=== PATIENT | male | born 1970 | race Caucasian/White ===

== ENCOUNTER 2019-10-16 00:21 | Day surgery (SDC) | payer OTHER, SELFPAY ==
[2019-10-08 08:53] VITALS: BMI 19.8
--- NOTE | 2019-10-15 08:38 | PM.IMHP ---
H&P: HPI History of Present Illness Chief complaint: Rt medial & lateral meniscal tear,ACL tear Narrative: Pt. presents for MRI results of the Rt knee. Involved knee: right Onset: gradual Location of pain: other (entire knee region ) Pain scale (0-10): 7 Character: stabbing, dull ache and other (sharp) Timing of pain: constant Exacerbated by: direct pressure, weight bearing, stairs and prolonged activity Relieved by: elevation, ice, rest and NSAIDs History of occupational/recreational activity with repetitive motion: No History of prior knee injury: No Chief Complaint: see Reason for Visit Duration: years Severity: moderate Review of Systems Review of Systems: All systems reviewed & are unremarkable except as noted in HPI and below Constitutional: Constitutional: Denies headache(s) and Denies weakness Eyes: Eyes: Denies blurry vision, Denies change in vision and Denies loss of vision ENT: Denies dizziness, Denies dry mouth, Denies headache(s) and Denies nasal congestion Cardiovascular: Cardiovascular: Denies chest pain, Denies syncope, Denies leg edema and Denies dyspnea on exertion Respiratory: Respiratory: Denies cough and Denies dyspnea on exertion Gastrointestinal: Gastrointestinal: Denies abdominal pain, Denies constipation and Denies diarrhea Genitourinary: Genitourinary: Denies urinary frequency Musculoskeletal: Musculoskeletal: Reports as per HPI and Denies numbness Integumentary/Breasts: Skin/Breast: Reports system reviewed and no additional complaints, except as docu Neurologic: Denies dizziness, Denies syncope, Denies headache(s), Denies loss of vision, Denies numbness and Denies weakness Psychiatric: Psychiatric: Reports no additional psychiatric complaints Endocrine: Endocrine: Reports no additional endocrine complaints Hematologic/Lymphatic: Hematologic/Lymphatic: Reports no additional hematologic/lymphatic complaints [facility] Past Medical History Medical History ACL tear Bilateral knee pain Lateral meniscus tear Medial meniscus tear Social History Social History Smoking status: Never smoker Alcohol intake: never Meds Home Medications and Allergies Home Medications Medication Instructions Recorded Confirmed Type No Home Medications 08/09/19 10/08/19 History Allergies Allergy/AdvReac Type Severity Reaction Status Date / Time terbinafine Allergy Mild Hives Verified 10/08/19 08:52 Exam Narrative: Exam Narrative: Const Constitutional General: cooperative Nutritional Appearance: average body habitus Orientation/consciousness: oriented x3 Constitutional Limitations: no limitations HENMT Head: normal to inspection Ears: hearing grossly normal bilaterally General nose exam: external nose normal Face and sinus: normal facial exam Mouth: moist mucous membranes Teeth and gingiva: dentition normal Eyes General: appearance normal, both eyes and all related structures Pupils: Yes PERRL EOM: EOM intact bilaterally Neck Neck: Yes normal visual inspection Chest Chest palpation & inspection: normal inspection of the chest Resp Effort & Inspection: normal respiratory effort and able to speak in complete sentences Cardio Jugular venous distension: no JVD Neuro Cranial nerves: Yes PERRL Extrem General: Yes normal gait (antalgic ) and No calf tenderness Right lower extremity: normal to inspection, normal capillary refill and knee Details: abnormal to inspection, tenderness Location: medial joint line and lateral joint line, swelling, abnormal ROM (AROM/PROM limited by pain. 0-120 ), knee ligament exam normal (positive pivot shift test ) and Kate's Test (Positive medial Kate's. ) Details: negative medially and laterally Left lower extremity: normal to inspection, full ROM, normal capillary refill and knee Details: normal to inspection, normal ROM, knee ligament exam rusty
[2019-10-16] VITALS (9 sets, daily range): BP systolic 113–142; BP diastolic 63–80; PULSE 75–86; RESP 14–24; TEMP 36.3–36.9; O2SAT 94–99
--- NOTE | 2019-10-16 07:37 | WPDHPUPDATE1 ---
History and Physical Update Update Date/Time: 10/16/19 07:37 History and Physical has been reviewed, including an updated exam of the patient. There are NO changes in the patient's condition. Risks, benefits, and alternatives have been discussed and questions answered. Patient agrees to proceed with procedure.
[2019-10-16] MEDS: LACTATED RINGERS 1,000 ML 30 ML IV CONT ×2 (10:55→15:33)
[2019-10-16] MEDS: CELECOXIB 200 MG CAPSULE PO (11:14)
--- NOTE | 2019-10-16 11:15 | SUR.PREOP ---
1100 PT DENIES NEED FOR CRUTCH TRAINING, CRUTCHES ADJUSTED FOR PTS USE.
--- NOTE | 2019-10-16 11:48 | P.PNAN_ITS ---
Anes - Initial Pre Proc Eval Procedure: Operation Date: 10/16/19 12:30 Proposed Procedures p Right Knee Arthroscopy with Meniscectomy and Anterior Cruciate Ligament Reconstruction - Brent Burrows MD Date/Time: 10/16/19 11:48 Surgeon: Brent Burrows MD Pre Op Diagnosis: Rt medial & lateral meniscal tear,ACL tear Patient Data Age: 49 Gender: M Height: 1.73 m Weight: 106 kg Last Vital Signs Temp 36.3 C L 10/16/19 11:07 Pulse 79 10/16/19 11:07 Resp 18 10/16/19 11:07 BP 128/80 10/16/19 11:07 Pulse Ox 96 10/16/19 11:07 Allergies Allergy/AdvReac Type Severity Reaction Status Date / Time terbinafine Allergy Mild Hives Verified 10/16/19 11:01 Home Medications Medication Instructions Recorded Confirmed Type No Home Medications 08/09/19 10/16/19 History Patient hx anesthesia problems: none Family hx anesthesia problems: none [facility] Past Medical History Medical History ACL tear Bilateral knee pain Lateral meniscus tear Medial meniscus tear Social History Social History Smoking status: Never smoker Alcohol intake: never Anes - Eval Final PreProcedure Day of Procedure 10/16/19 11:48 Patient weight: obese Heart: regular rate and rhythm Lungs: clear to auscultation and normal air movement Airway: Mallampati scale class II Neurological: alert and oriented Last oral intake: >/= 8 hours ASA classification: II Emergent: no Anesthetic plan: proceed Anesthesia type and monitoring: general LMA and standard monitoring Informed Consent: The patient's anesthetic plan and its attendant risks and benefits were discussed with the patient/family/POA. Questions were solicited and answers provided to the satisfaction of the patient/family/POA.
[2019-10-16] MEDS: ceFAZolin 2 GM/D5W 50 ML 2 GM/50 ML BAG IVPB (12:32)
--- NOTE | 2019-10-16 15:15 | PM.OP ---
Procedure Note - Brief Procedure Note - Brief Date of procedure: 10/16/19 Pre-op diagnosis: Rt medial & lateral meniscal tear,ACL tear Post-op diagnosis: same Procedure performed: R ACL RECONSTRUCTION WITH PARTIAL MEDIAL AND LATERAL MENISCECTOMY Anesthesia: GETA Surgeon: Brent Burrows MD Estimated blood loss (mL): 20 Drains: No Complications: No immediate complications Condition: stable Disposition: PACU
[2019-10-16] MEDS: ONDANSETRON INJ 4 MG/2 ML VIAL IV PUSH (16:09)
--- NOTE | 2019-10-16 16:09 | SUR.PHASEI ---
1609; PT AWAKE, C/O NAUSEA. BECAME DIAPHORETIC. OLIVIA HUGGER REMOVED. COLD CLOTH TO FOREHEAD. ZOFRAN GIVEN IV.
--- NOTE | 2019-10-16 16:27 | SUR.PHASEI ---
1625; SAO2 DROPS TO 88% ON ROOM AIR. RESP EVEN UNLABORED. O2 2L NC APPLIED. PT RESTING QUIETLY.
--- NOTE | 2019-10-16 16:35 | SUR.PHASEI ---
1634; OXYGEN REMOVED. PT AWAKE AND ALERT.
--- NOTE | 2019-10-16 16:41 | SUR.PHASEI ---
1641; SAO2 94% ON ROOM AIR. READY TO SEE FAMILY
--- NOTE | 2019-10-16 17:49 | OP_ITS ---
DATE OF PROCEDURE: 10/16/2019 PREOPERATIVE DIAGNOSIS: Right knee ACL rupture, medial meniscus tear and lateral meniscus tear. POSTOPERATIVE DIAGNOSIS: Right knee ACL rupture, medial meniscus tear and lateral meniscus tear. PROCEDURE: Right ACL reconstruction, partial medial meniscectomy and partial lateral meniscectomy. ANESTHESIA: General. COMPLICATIONS: None. INDICATIONS: This is a 49-year-old male, who tore his right anterior cruciate ligament as well as the medial and lateral meniscus. He had instability and pain. He was indicated for right ACL reconstruction and partial medial and lateral meniscectomies. DESCRIPTION OF PROCEDURE: The patient was taken to the operating room in stable condition and placed in supine position. General anesthesia was induced and once he was chemically paralyzed, a pivot shift test was performed on the knee and he had a positive pivot shift on the right knee and this was compared to the left side, which had a negative pivot shift test. So, then the right lower extremity was prepped and draped sterilely from the toes to the thigh. A superomedial portal was used for an outflow cannula. An inferolateral portal was used for the camera. The camera was introduced. There was minimal chondromalacia to the patellofemoral joint. There was a large effusion in the knee. There was a lot of synovitis as well. The medial compartment was entered. There was a large tear of the medial meniscus. There was a complex tear. There was some mild chondromalacia to the medial femoral condyle. A medial portal was established and a biter and shaver were introduced at separate times and the medial meniscus was resected along the part that was torn and it was smoothed out to a stable base. Next, just a minimal chondroplasty was performed over the medial femoral condyle, and then intercondylar notch was entered. The ACL was completely torn. There were remnants of the ACL, but there was no viable tissue. The PCL was actually appearing and it was found to be intact. Next, the lateral compartment was entered, and then there was the evidence of a large tear of the lateral meniscus, which involved the entire posterior horn and some of the anterior horn as well. A shaver and a biter were used to perform a partial lateral meniscectomy, and there was also some chondromalacia on the lateral femoral condyle that was debrided as well to a stable base. Next, the intercondylar notch was entered once again and a debridement of the remnants of the ACL were performed with both the shaver and a cautery until the PCL was identified. The PCL was intact. Next, a notchplasty was performed with a james until the [id number] position was identified. Once that was performed, then a small incision was made in the anterior medial aspect of the knee just medial to the tibial tubercle down through the subcutaneous tissues through the fascia and down to bone. An ACL position guide was placed through the medial portal and into the proximal tibia, and the guide was placed just adjacent to the PCL stump and a guide pin was placed for the tibial tunnel. This guide pin exited just anterolateral to the PCL and it was in good position. Once that was performed, a 9.5 mm drill bit was used to drill the tibial tunnel. Over the top #7 guide was placed to the tibial tunnel and into the [id number] position and a drill guide was used and passed through the femur and exiting out the anterior lateral thigh. A femoral tunnel then was drilled using a 9.5 mm drill bit measuring approximately 27 mm in depth. The drill hole was quite nice and [id number] position was maintained. Once that was performed, then the graft with an Endobutton of the tight wire type was then fed through the guidewire needle and it was pushed through the tib
== END 2019-10-16 17:39 | disposition home or self-care (01) ==
PROVIDERS: PCP Family Medicine; Visit Provider Orthopaedic Surgery
PROC: (CPT 29888; principal; 2019-10-16 12:30)
DX: S83.511A Sprain of anterior cruciate ligament of right knee, initial encounter (principal); S83.231A Complex tear of medial meniscus, current injury, right knee, initial encounter; S83.271A Complex tear of lateral meniscus, current injury, right knee, initial encounter; M65.861 Other synovitis and tenosynovitis, right lower leg; M94.261 Chondromalacia, right knee; X58.XXXA Exposure to other specified factors, initial encounter; E66.9 Obesity, unspecified; Z68.35 Body mass index [BMI] 35.0-35.9, adult
CPT/HCPCS: 29880; 29888; A9270; J0690; J1170; J2250; J2405; J3010; J7120; L1830

== ENCOUNTER → 2023-12-14 14:54 | Outpatient (CLI) | payer OTHER, SELFPAY ==
--- NOTE | ~2023-12-14 | XR_ITS ---
XR shoulder LT min 2V 12/14/2023 15:20 Indication: Left shoulder pain Procedure: 4 views left shoulder Comparison: No prior studies for comparison. Findings: There is mild polyarticular osteoarthritis of the shoulder. No fracture or traumatic malali gnment. There is no significant focal soft tissue abnormality. No foreign bodies. Impression: 1: Mild polyarticular osteoarthritis. Reviewed, dictated and finalized at location A. Impression: 1: Mild polyarticular osteoarthritis.
== END ==
PROVIDERS: PCP Family Medicine; Visit Provider Family Medicine
DX: M25.512 Pain in left shoulder (principal); M19.012 Primary osteoarthritis, left shoulder
CPT/HCPCS: 72050; 73030

== ENCOUNTER → 2023-12-14 16:20 | Outpatient (CLI) | payer OTHER, SELFPAY ==
--- NOTE | ~2023-12-14 | XR_ITS ---
XR cervical spine 4-5V 12/14/2023 16:34 Indication: Neck pain and cervicalgia Procedure: 5 views of the cervical spine Comparison: No prior studies for comparison. Findings: Straightening of cervical lordosis, likely due to muscle spasm. Vertebral body heights are maintained. No prevertebral soft tissue swelling. Lung apices are unremarkable. Odontoid process is n ormal. There are small marginal osteophytes ventrally at multiple levels. Impression: 1: Mild cervical spondylosis. Reviewed, dictated and finalized at location A. Impression: 1: Mild cervical spondylosis.
== END ==
PROVIDERS: PCP Family Medicine; Visit Provider Family Medicine
DX: M54.2 Cervicalgia (principal); M43.02 Spondylolysis, cervical region
CPT/HCPCS: 72050

== ENCOUNTER → 2024-03-27 11:07 | Outpatient (CLI) | payer OTHER, SELFPAY ==
--- NOTE | ~2024-03-27 | XR_ITS ---
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 COMPARISON: None available. FINDINGS: Normal mineralization. No fracture or dislocation. No lytic or blastic lesion. Mild planta r enthesopathy. Mild degenerative change at the first MTP joint. No erosion or periosteal change. Sof t tissues within normal limits. IMPRESSION: Mild first MTP joint osteoarthritis. Plantar enthesopathy. Reviewed, dictated and finalized at location K.
== END ==
LOC: EXPTRAD 11:08
PROVIDERS: PCP Family Medicine; Visit Provider Family Medicine
DX: M19.072 Primary osteoarthritis, left ankle and foot (principal); M77.52 Other enthesopathy of left foot and ankle
CPT/HCPCS: 73630